=== PATIENT | male | born 1990 ===

== ENCOUNTER 2020-11-19 08:16 | Emergency (ER) | payer OTHER ==
[~2020-11-19] VITALS: Ht 185.4 cm; Wt 90.7 kg
[2020-11-19] MEDS ORDERED: KETO10TA2 PO (09:45)
[2020-11-19] MEDS ORDERED: ORPHENADRINE C100 MG PO (09:45)
[2020-11-19] MEDS ORDERED: PEPCID AC20 MG PO (09:45)
== END 2020-11-19 10:04 | disposition home or self-care (01) ==
LOC: ER 08:16
DX: S30.0XXA Contusion of lower back and pelvis, initial encounter (principal); S80.02XA Contusion of left knee, initial encounter; S70.02XA Contusion of left hip, initial encounter; W18.39XA Other fall on same level, initial encounter; Y93.89 Activity, other specified; Y92.89 Other specified places as the place of occurrence of the external cause; Y99.8 Other external cause status